=== PATIENT | female | born 1980 | race Caucasian/White ===

== ENCOUNTER 2019-02-15 22:05 | Emergency (ER) | payer SELFPAY ==
[~2019-02-15] VITALS: Ht 165.1 cm; Wt 72.6 kg
[2019-02-15 23:15] VITALS: BP 114/76
== END 2019-02-16 00:16 | disposition home or self-care (01) ==
LOC: ER 22:10
DX: S90.852A Superficial foreign body, left foot, initial encounter (principal); Z88.0 Allergy status to penicillin; Z88.1 Allergy status to other antibiotic agents; W45.8XXA Other foreign body or object entering through skin, initial encounter; Y93.89 Activity, other specified; Y92.89 Other specified places as the place of occurrence of the external cause; Y99.8 Other external cause status

== ENCOUNTER 2019-03-19 15:33 | Emergency (ER) | payer SELFPAY ==
[~2019-03-19] VITALS: Ht 165.1 cm; Wt 72.6 kg
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
--- NOTE | 2019-03-19 16:15 | NUR ---
LAVELL SCHUMACHER AT BEDSIDE
[2019-03-19] MEDS ORDERED: IBUPROFEN 600 MG TABLET PO ONE ×2 (16:27→16:30)
[2019-03-19 17:16] VITALS: BP 138/74
--- NOTE | 2019-03-19 17:16 | NUR ---
Patient discharged to home in stable condition. Written and verbal after care instructions given. Patient verbalizes understanding of instruction.
== END 2019-03-19 17:16 | disposition home or self-care (01) ==
LOC: ER 15:34
DX: M79.672 Pain in left foot (principal); L98.8 Other specified disorders of the skin and subcutaneous tissue; Z88.0 Allergy status to penicillin; Z88.1 Allergy status to other antibiotic agents
CPT/HCPCS: 73630-TC

== ENCOUNTER 2019-05-19 09:23 | Emergency (ER) | payer SELFPAY ==
[~2019-05-19] VITALS: Ht 165.1 cm; Wt 74.8 kg
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
--- NOTE | 2019-05-19 09:48 | NUR ---
DR CORDOBA AT BEDSIDE
[2019-05-19] MEDS ORDERED: IBUPROFEN 400 MG TABLET PO ONE (10:00)
--- NOTE | 2019-05-19 10:10 | NUR ---
NOAM LOPEZ AT BEDSIDE, SIGNED WAIVER FORM.
[2019-05-19] MEDS ORDERED: IBUPROFEN 400 MG TABLET ONE (10:11)
--- NOTE | 2019-05-19 10:14 | NUR ---
BUTTER GRADER WILL COME BACK, XRAY MACHINE NOT WORKING
--- NOTE | 2019-05-19 10:20 | NUR ---
FLU SWAB SENT TO LAB
--- NOTE | 2019-05-19 10:21 | NUR ---
WAREDRESSER BACK AT BEDSIDE
--- NOTE | 2019-05-19 11:30 | NUR ---
Patient discharged to home in stable condition. Written and verbal after care instructions given. Patient verbalizes understanding of instruction.
[2019-05-19 11:31] VITALS: BP 121/73
== END 2019-05-19 11:31 | disposition home or self-care (01) ==
LOC: ER 09:23
DX: J40 Bronchitis, not specified as acute or chronic (principal); Z88.0 Allergy status to penicillin; Z88.1 Allergy status to other antibiotic agents
CPT/HCPCS: 71045-TC

== ENCOUNTER 2020-01-04 17:01 | Emergency (ER) | payer OTHER ==
[~2020-01-04] VITALS: Ht 170.2 cm; Wt 69.4 kg
[2020-01-04 17:19] VITALS: BP 115/64
[2020-01-04] MEDS ORDERED: KETOROLAC TROMETHAMINE INJ 60 MG/2 ML VIAL IM ONE ×2 (17:41→18:00)
[2020-01-04] MEDS ORDERED: CYCLOBENZAPRINE 10 MG TABLET ONE (17:41)
--- NOTE | 2020-01-04 17:43 | NUR ---
TORADOL 60MG VIA IM GIVEN PER MD ORDERED. RIGHT GLUTEAL. 6/10 ACHING PAIN. FLEXERIL 10MG PO X 1 GIVEN PER MD ORDERED
--- NOTE | 2020-01-04 17:52 | NUR ---
Patient discharged to home in stable condition. Written and verbal after care instructions given. Patient verbalizes understanding of instruction. Pt ambulatory with a steady gait
[2020-01-04] MEDS ORDERED: CYCLOBENZAPRINE 10 MG TABLET PO ONE (18:00)
== END 2020-01-04 17:53 | disposition home or self-care (01) ==
LOC: ER 17:05
DX: M25.512 Pain in left shoulder (principal); Z88.0 Allergy status to penicillin; Z88.1 Allergy status to other antibiotic agents
CPT/HCPCS: 96372; 99283; J1885

== ENCOUNTER 2022-09-01 20:54 | Emergency (ER) | payer OTHER ==
[~2022-09-01] VITALS: Ht 165.1 cm; Wt 81.6 kg
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
--- NOTE | 2022-09-01 21:43 | NUR ---
OFFERED URINE CUP FOR URINE SAMPLE
--- NOTE | 2022-09-01 21:48 | NUR ---
URINE SAMPLE COLLECTED, SENT TO LAB
[2022-09-01] MEDS ORDERED: KETOROLAC TROMETHAMINE INJ 30 MG/ML VIAL ONE (22:15)
[2022-09-01] MEDS ORDERED: CYCLOBENZAPRINE 10 MG TABLET ONE (22:16)
[2022-09-01] MEDS ORDERED: KETOROLAC TROMETHAMINE INJ 30 MG/ML VIAL IM ONE (22:30)
[2022-09-01] MEDS ORDERED: CYCLOBENZAPRINE 10 MG TABLET PO ONE (22:30)
[2022-09-01] MEDS ORDERED: ACETAMINOPHEN ES 500 MG TABLET ONE (23:15)
[2022-09-01] MEDS ORDERED: GABAPENTIN 300 MG CAPSULE ONE (23:15)
[2022-09-01] MEDS ORDERED: GABAPENTIN 100 MG CAPSULE PO ONE (23:30)
[2022-09-01] MEDS ORDERED: ACETAMINOPHEN ES 500 MG TABLET PO ONE (23:30)
--- NOTE | 2022-09-02 00:50 | NUR ---
MD AT BEDSIDE FOR UPDATES
--- NOTE | 2022-09-02 00:56 | NUR ---
Patient discharged to home in stable condition. Written and verbal after care instructions given. Patient verbalizes understanding of instruction.
[2022-09-02] MEDS ORDERED: GABA-536 PO (00:57)
[2022-09-02] MEDS ORDERED: CYCL5TAB PO (00:57)
[2022-09-02 01:04] VITALS: BP 115/72
== END 2022-09-02 01:04 | disposition home or self-care (01) ==
LOC: ER 20:58
DX: M25.512 Pain in left shoulder (principal); Z79.899 Other long term (current) drug therapy; Z88.1 Allergy status to other antibiotic agents; Z88.0 Allergy status to penicillin
CPT/HCPCS: 99284; 96372; J1885

== ENCOUNTER 2022-12-15 00:14 | Emergency (ER) | payer OTHER ==
[~2022-12-15] VITALS: Ht 165.1 cm; Wt 79.4 kg
[~2022-12-15 00:14] MED LIST: CYCL5TAB PO; GABA-536 PO
[2022-12-15] MEDS ORDERED: ONDANSETRON HCL/PF 4 MG/2 ML VIAL ONE (00:54)
[2022-12-15] MEDS ORDERED: DICYCLOMINE HCL INJ 20 MG/2 ML AMPUL IM ONE ×2 (00:54→01:00)
[2022-12-15] MEDS ORDERED: IV NS 0.9% 1,000 ML BAG IV ONE (01:00)
[2022-12-15] MEDS ORDERED: ONDANSETRON HCL/PF 4 MG/2 ML VIAL IVP ONE (01:00)
[2022-12-15 01:02] LABS: BASOPHILS % (AUTO) 0.4 % (0.0-2.0); EOSINOPHILS # (AUTO) 0.1 K/uL (0.0-0.7); EOSINOPHILS % (AUTO) 0.8 % (0.0-6.0); HEMATOCRIT 35 % (33-45); HEMOGLOBIN 11.8 g/dL (11.5-14.8); LYMPHOCYTES # (AUTO) 1.9 K/uL (0.8-4.8); LYMPHOCYTES % (AUTO) 20.7 % (20.0-44.0); MEAN CORPUSCULAR HEMOGLOBIN 31 PG (26.0-33.0); MEAN CORPUSCULAR HGB CONC 33 g/dl (31.0-36.0); MEAN CORPUSCULAR VOLUME 94 fL (82-100); MONOCYTES # (AUTO) 0.5 K/uL (0.1-1.30); MONOCYTES % (AUTO) 5.7 % (2.0-12.0); NEUTROPHILS # (AUTO) 6.6 K/uL (1.8-8.9); NEUTROPHILS % (AUTO) 72.4 % (43.0-81.0); PLATELET COUNT (AUTO) 227 K/uL (150-450); RED BLOOD CELL COUNT(AUTO) 3.78 MIL/uL (4.0-5.2); RED CELL DISTRIBUTION WIDTH 14.6 % (11.5-15.0); WHITE BLOOD COUNT (AUTO) 9.2 K/uL (4.3-11.0)
[2022-12-15 01:09] VITALS: TEMP 98.5
[2022-12-15 01:12] LABS: CALCIUM, SERUM 8.7 mg/dL (8.5-10.1); CREATININE 0.9 mg/dL (0.6-1.3); POTASSIUM 4.6 mmol/L (3.5-5.1)
[2022-12-15 01:17] LABS: ALBUMIN 3.7 g/dL (3.4-5.0); BILIRUBIN,TOTAL 0.5 mg/dL (0.2-1.0); TOTAL PROTEIN, SERUM 6.8 g/dL (6.4-8.2)
[2022-12-15 01:22] LABS: INR 0.98 (0.91-1.10); PARTIAL THROMBOPLASTIN TIME 21.3 SEC (24.3-34.3); PROTHROMBIN TIME 10.3 SECS (9.2-11.1)
[2022-12-15 01:27] LABS: APPEARANCE,URINE CLEAR (CLEAR); BILIRUBIN,URINE NEGATIVE (NEGATIVE); BLOOD, URINE NEGATIVE Ery/uL (NEGATIVE); COLOR,URINE YELLOW (YELLOW); KETONES,URINE NEGATIVE (NEGATIVE); LEUKOCYTE ESTERASE ,URINE NEGATIVE (NEGATIVE); NITRITE, URINE NEGATIVE (NEGATIVE); PROTEIN,URINE NEGATIVE (NEGATIVE); UGLUCOSE NEGATIVE (NEGATIVE); UROBILINOGEN,URINE 0.2 EU/dL (0.2)
[2022-12-15 01:28] LABS: PREGNANCY TEST URINE QUAL NEGATIVE (NEGATIVE)
[2022-12-15 05:19] VITALS: BP 110/64; O2SAT 99
== END 2022-12-15 05:21 | disposition home or self-care (01) ==
LOC: ER 00:15
DX: R10.32 Left lower quadrant pain (principal); Z79.899 Other long term (current) drug therapy; Z88.0 Allergy status to penicillin; Z88.1 Allergy status to other antibiotic agents
CPT/HCPCS: 99285; 74176; 96374; 96361; 85025; 80048; 83690; 80076; 84703; 81003; 36415; 85730; 96372; J2405; J7030; J0500

== ENCOUNTER 2023-07-27 01:14 | Emergency (ER) | payer OTHER ==
[~2023-07-27] VITALS: Ht 165.1 cm; Wt 79.4 kg
[2023-07-27 01:37] VITALS: BP 131/78; TEMP 97.8; O2SAT 98
== END 2023-07-27 02:20 | disposition home or self-care (01) ==
LOC: ER 01:22
DX: S80.212D Abrasion, left knee, subsequent encounter (principal); Z48.00 Encounter for change or removal of nonsurgical wound dressing; Z88.0 Allergy status to penicillin; W01.0XXD Fall on same level from slipping, tripping and stumbling without subsequent striking against object, subsequent encounter